=== PATIENT | male | born 1935 | race Caucasian/White ===

== ENCOUNTER 2017-09-07 02:10 | Inpatient (IN) | payer MEDICARE ==
[~2017-09-07] VITALS: Ht 185.4 cm; Wt 108.9 kg
[~2017-09-07 02:10] MED LIST: ACET-66 PO; ATOR-2 PO; DOXE25CA3 PO; FINA5TAB41 PO; GABA-529 PO; GALA8TAB4 PO; MEMA5TAB15 PO; METO50TA18 PO; OMEP20CA10 PO; SACU1TAB PO; TAMS-1 PO; TRAZ-147 PO; TYL3 PO; VIT1CAPS47 PO
[2017-09-07] MEDS ORDERED: ASPIRIN 81MG TAB.CHEW ONE (02:20)
[2017-09-07] MEDS ORDERED: METOPROLOL TARTRATE 1 MG/ML 5ML VIAL IV ONE (02:20)
[2017-09-07 02:49] LABS: CREATININE 1.2 mg/dL (0.5-1.5); POTASSIUM 4.8 mmol/L (3.5-5.1)
[2017-09-07 03:03] LABS: ALBUMIN 3.7 g/dL (3.5-5.0); BILIRUBIN,TOTAL 0.5 mg/dL (0.2-1.0); CREATINE KINASE MB 2.4 ng/mL (0.5-3.6); TOTAL PROTEIN, SERUM 7.4 g/dL (6.0-8.3)
[2017-09-07 03:52] LABS: BASOPHILS % (AUTO) 0.7 % (0.0-5.0); LYMPHOCYTES % (AUTO) 25.7 % (21.0-51.0); MEAN CORPUSCULAR HEMOGLOBIN 31.4 pg (27.0-33.0); MEAN CORPUSCULAR VOLUME 92.2 fL (79-99); MONOCYTES % (AUTO) 10.7 % (3.0-13.0); NEUTROPHILS % (AUTO) 60.9 % (40.0-77.0); PLATELET COUNT (AUTO) 135 K/uL (130-400); RED BLOOD CELL COUNT(AUTO) 4.12 MIL/uL (4.50-6.20); RED CELL DISTRIBUTION WIDTH 14.5 % (11.0-15.5); WHITE BLOOD COUNT (AUTO) 3.9 K/uL (4.8-10.8)
[2017-09-07 04:02] LABS: INR 1.06 (0.85-1.15); PARTIAL THROMBOPLASTIN TIME 29.2 SEC (26.3-35.5); PROTHROMBIN TIME 11.1 SEC (9.6-11.6)
[2017-09-07] MEDS ORDERED: NITROGLYCERIN 1GM/1 INCH PACKET TD ONE (07:47)
[2017-09-07 08:20] VITALS: BP 133/91
[2017-09-07] MEDS ORDERED: POTASSIUM CHLORIDE 20 MEQ ERTAB PO PRN (09:15)
[2017-09-07] MEDS ORDERED: POTASSIUM CHLORIDE 10% ELIXIR 20 MEQ/15 ML UDCUP PO PRN (09:15)
[2017-09-07] MEDS ORDERED: MAG HYDROX/AL HYDROX/SIMETH ES 30 ML SUSP UDCUP PO PRN (09:15)
[2017-09-07] MEDS ORDERED: GUAIFENESIN SUGAR-FREE 100 MG/5 ML UDCUP PO PRN (09:15)
[2017-09-07] MEDS ORDERED: DEXTROSE 50%-WATER 50 ML DISP.SYRIN IV PRN (09:15)
[2017-09-07] MEDS ORDERED: ONDANSETRON HCL 4 MG/2 ML VIAL IVP PRN (09:15)
[2017-09-07] MEDS ORDERED: ACETAMINOPHEN 325 MG TAB PO PRN ×2 (09:15)
[2017-09-07] MEDS ORDERED: GLUCAGON 1MG KIT 1 MG ML IM PRN (09:15)
[2017-09-07] MEDS ORDERED: DiphenhydrAMINE HCL 50 MG/ML VIAL IVP PRN (09:15)
[2017-09-07] MEDS ORDERED: SODIUM CHLORIDE 0.9% 10 ML VIAL IVP SCH (09:15)
[2017-09-07] MEDS ORDERED: LIDOCAINE HCL-MPF 1% 2ML VIAL IJ PRN (09:15)
[2017-09-07] MEDS ORDERED: POTASSIUM CHLORIDE 20MEQ/100ML 100 ML IV PRN (09:15)
[2017-09-07] MEDS: NITROGLYCERIN 1GM/1 INCH PACKET TD SCH ×2 (09:15→16:03)
[2017-09-07] MEDS ORDERED: NITROGLYCERIN 0.4 MG SL TAB SL PRN (09:15)
[2017-09-07] MEDS ORDERED: ZOLPIDEM TARTRATE 5 MG TAB PO PRN (09:15)
[2017-09-07] MEDS ORDERED: CLONIDINE HCL 0.1 MG TABLET PO PRN (09:15)
[2017-09-07] MEDS ORDERED: LACTULOSE 20 GM/30 ML UDCUP PO PRN (09:15)
[2017-09-07] MEDS ORDERED: GUAIFENESIN-DM 200/20 MG 10 ML PO PRN (09:15)
[2017-09-07] MEDS ORDERED: DIPHENHYDRAMINE HCL 25 MG CAPSULE PO PRN (09:15)
[2017-09-07 09:40] LABS: CREATINE KINASE MB 5.5 ng/mL (0.5-3.6); TROPONIN I 0.69 ng/mL (0.00-0.06)
[2017-09-07] MEDS: ASPIRIN 325 MG TABLET PO SCH (09:55)
[2017-09-07] MEDS: METOPROLOL TARTRATE 50 MG TAB PO SCH ×2 (09:55→23:47)
[2017-09-07] MEDS: PANTOPRAZOLE SODIUM 40 MG TABLET.DR PO SCH (09:55)
[2017-09-07] MEDS: INSULIN R PO SSI SQ SCH ×3 (11:30→21:00)
[2017-09-07 11:34] VITALS: BP 123/69
[2017-09-07] MEDS ORDERED: CLOP75TA32 PO (13:21)
[2017-09-07] MEDS ORDERED: FURO20TA4 PO (13:21)
[2017-09-07 15:38] LABS: CREATINE KINASE MB 5.9 ng/mL (0.5-3.6)
[2017-09-07 15:41] LABS: TROPONIN I 1.44 ng/mL (0.00-0.06)
[2017-09-07 16:33] VITALS: BP 128/74
[2017-09-07 19:40] VITALS: BP 114/74
[2017-09-07] MEDS ORDERED: ATORVASTATIN CALCIUM 40 MG TABLET PO SCH (21:00)
[2017-09-07] MEDS ORDERED: FINASTERIDE 5 MG TABLET PO SCH (21:00)
[2017-09-07] MEDS ORDERED: TRAZODONE HCL 50 MG TAB PO SCH (21:00)
[2017-09-07] MEDS ORDERED: TAMSULOSIN HCL 0.4 MG CAP.ER.24H PO SCH (21:00)
[2017-09-07] MEDS ORDERED: DOXEPIN HCL 25 MG CAP PO SCH (21:00)
[2017-09-07] MEDS: MEMANTINE HCL 5 MG TABLET PO SCH (21:27)
[2017-09-07 23:48] VITALS: BP 118/65
[2017-09-08] MEDS: NITROGLYCERIN 1GM/1 INCH PACKET TD SCH ×2 (01:38→10:55)
[2017-09-08 03:36] VITALS: BP 111/75
[2017-09-08] MEDS: INSULIN R PO SSI SQ SCH ×3 (06:42→16:23)
[2017-09-08] MEDS ORDERED: REGADENOSON 0.4 MG/5 ML PF SYG IVP SCH (06:45)
[2017-09-08 07:27] VITALS: BP 138/81
[2017-09-08] MEDS ORDERED: FUROSEMIDE 20 MG TABLET PO SCH (09:00)
[2017-09-08] MEDS ORDERED: GALANTAMINE HBR 4 MG TABLET PO SCH (09:00)
[2017-09-08] MEDS ORDERED: **HM** ENTRESTO 24-26MG PO SCH (09:00)
[2017-09-08] MEDS ORDERED: NON-FORMULARY MEDICATION 1 EACH (Omeprazole 20 MG) PO SCH (09:00)
[2017-09-08] MEDS: **HM** PRESERVISION AREDS PO SCH ×2 (09:00→14:00)
[2017-09-08] MEDS ORDERED: CLOPIDOGREL BISULFATE 75 MG TAB PO SCH (09:00)
[2017-09-08] MEDS: METOPROLOL TARTRATE 50 MG TAB PO SCH (10:53)
[2017-09-08] MEDS: ACETAMINOPHEN EXTRA STRENGTH 500 MG TABLET PO SCH ×2 (10:53→14:04)
[2017-09-08] MEDS: PANTOPRAZOLE SODIUM 40 MG TABLET.DR PO SCH (10:53)
[2017-09-08] MEDS: ASPIRIN 325 MG TABLET PO SCH (10:54)
[2017-09-08] MEDS: MEMANTINE HCL 5 MG TABLET PO SCH (10:55)
[2017-09-08 10:57] VITALS: BP 129/77
[2017-09-08] MEDS ORDERED: CARV3.12 PO (16:17)
[2017-09-08 16:22] VITALS: BP 139/71
== END 2017-09-08 18:15 | disposition home or self-care (01) | DRG 303 ==
LOC: EDH 02:10 → EDHIP 06:25 → 2AH 08:08 → 2DH 20:17
PROVIDERS: ADMIT Family Medicine; ATTEND Family Medicine
DX: I25.10 Atherosclerotic heart disease of native coronary artery without angina pectoris (principal); G62.9 Polyneuropathy, unspecified; Z95.1 Presence of aortocoronary bypass graft; R07.9 Chest pain, unspecified; I99.8 Other disorder of circulatory system; E78.5 Hyperlipidemia, unspecified; H91.90 Unspecified hearing loss, unspecified ear; I10 Essential (primary) hypertension; I49.3 Ventricular premature depolarization; Z95.810 Presence of automatic (implantable) cardiac defibrillator
CPT/HCPCS: 36415; 71045; 78452; 80053; 82550; 82553; 82948; 83874; 83880; 84484; 85025; 85610; 85730; 93005; A9500; J2785; J3490

== ENCOUNTER 2017-10-22 14:16 | Inpatient (IN) | payer MEDICARE ==
[~2017-10-22] VITALS: Ht 185.4 cm; Wt 108.9 kg
[~2017-10-22 14:16] MED LIST changes: +CARV3.12 PO; +CLOP75TA32 PO; +FURO20TA4 PO; -METO50TA18 PO; -TRAZ-147 PO; +TRAZ-187 PO; -TYL3 PO
[2017-10-22 14:44] LABS: BASOPHILS % (AUTO) 0.6 % (0.0-5.0); EOSINOPHILS % (AUTO) 4.6 % (0.0-8.0); HEMATOCRIT 38.2 % (42-54); LYMPHOCYTES % (AUTO) 27.5 % (21.0-51.0); MEAN CORPUSCULAR HEMOGLOBIN 31.1 pg (27.0-33.0); MEAN CORPUSCULAR HGB CONC 34.1 g/dL (32.0-36.0); MEAN CORPUSCULAR VOLUME 91.1 fL (79-99); MONOCYTES % (AUTO) 11.7 % (3.0-13.0); NEUTROPHILS % (AUTO) 55.6 % (40.0-77.0); PLATELET COUNT (AUTO) 167 K/uL (130-400); RED BLOOD CELL COUNT(AUTO) 4.19 MIL/uL (4.50-6.20); RED CELL DISTRIBUTION WIDTH 14.3 % (11.0-15.5); WHITE BLOOD COUNT (AUTO) 4.3 K/uL (4.8-10.8)
[2017-10-22 15:00] LABS: INR 1.04 (0.85-1.15); PARTIAL THROMBOPLASTIN TIME 30.7 SEC (26.3-35.5); PROTHROMBIN TIME 10.9 SEC (9.6-11.6)
[2017-10-22 15:03] LABS: CREATININE 1.3 mg/dL (0.5-1.5)
[2017-10-22 15:10] LABS: B-TYPE NATRIURETIC PEPTIDE 686 pg/mL (0-100)
[2017-10-22 15:16] LABS: ALBUMIN 3.3 g/dL (3.5-5.0); BILIRUBIN,TOTAL 0.3 mg/dL (0.2-1.0); CREATINE KINASE MB 3.4 ng/mL (0.5-3.6); TOTAL PROTEIN, SERUM 6.8 g/dL (6.0-8.3)
[2017-10-22 17:54] VITALS: BP 120/73
[2017-10-22 19:44] VITALS: BP 93/43
[2017-10-22] MEDS ORDERED: CLONIDINE HCL 0.1 MG TABLET PO PRN (21:15)
[2017-10-22] MEDS ORDERED: MAG HYDROX/AL HYDROX/SIMETH ES 30 ML SUSP UDCUP PO PRN (21:15)
[2017-10-22] MEDS ORDERED: GUAIFENESIN SUGAR-FREE 100 MG/5 ML UDCUP PO PRN (21:15)
[2017-10-22] MEDS ORDERED: LACTULOSE 20 GM/30 ML UDCUP PO PRN (21:15)
[2017-10-22] MEDS ORDERED: SODIUM CHLORIDE 0.9% 10 ML VIAL IVP PRN (21:15)
[2017-10-22] MEDS ORDERED: ACETAMINOPHEN 325 MG TAB PO PRN (21:15)
[2017-10-22] MEDS ORDERED: DiphenhydrAMINE HCL 50 MG/ML VIAL IVP PRN (21:15)
[2017-10-22] MEDS ORDERED: GUAIFENESIN-DM 200/20 MG 10 ML PO PRN (21:15)
[2017-10-22] MEDS ORDERED: NITROGLYCERIN 0.4 MG SL TAB SL PRN (21:15)
[2017-10-22] MEDS ORDERED: ONDANSETRON HCL 4 MG/2 ML VIAL IVP PRN (21:15)
[2017-10-22] MEDS ORDERED: ZOLPIDEM TARTRATE 5 MG TAB PO PRN (21:15)
[2017-10-22] MEDS ORDERED: DIPHENHYDRAMINE HCL 25 MG CAPSULE PO PRN (21:15)
[2017-10-22] MEDS: ACETAMINOPHEN 325 MG TAB PO PRN (21:54)
[2017-10-22 23:28] VITALS: BP 120/67
[2017-10-23 03:56] VITALS: BP 111/56
[2017-10-23 04:04] LABS: HEMATOCRIT 37.1 % (42-54); MEAN CORPUSCULAR HEMOGLOBIN 30.5 pg (27.0-33.0); MEAN CORPUSCULAR HGB CONC 33.5 g/dL (32.0-36.0); MEAN CORPUSCULAR VOLUME 91.1 fL (79-99); PLATELET COUNT (AUTO) 138 K/uL (130-400); RED BLOOD CELL COUNT(AUTO) 4.07 MIL/uL (4.50-6.20); RED CELL DISTRIBUTION WIDTH 14.2 % (11.0-15.5)
[2017-10-23 04:08] LABS: POTASSIUM 4.1 mmol/L (3.5-5.1)
[2017-10-23 05:07] LABS: BAND NEUTROPHILS % (MANUAL) 4 % (0-2); EOSINOPHILS % (MANUAL) 2 % (1-6); LYMPHOCYTES % (MANUAL) 14 % (22-44); MAN.DIFF COMMENT-IMPRESSION MANUAL DIFFERENTIAL; MONOCYTES % (MANUAL) 4 % (2-9); PLATELET MORPHOLOGY COMMENT SLIGHTLY DECREASED; SEGMENTED NEUTROPHILS % 76 % (40-70)
[2017-10-23 07:00] VITALS: BP 134/81
[2017-10-23] MEDS: PANTOPRAZOLE SODIUM 40 MG TABLET.DR PO SCH (08:29)
[2017-10-23] MEDS ORDERED: FUROSEMIDE 10 MG/ML 2ML VIAL IV SCH (09:00)
[2017-10-23] MEDS ORDERED: ASPIRIN 81MG TAB.CHEW PO SCH (09:00)
[2017-10-23] MEDS ORDERED: POTASSIUM CHLORIDE 20 MEQ ERTAB PO SCH (09:00)
[2017-10-23 10:00] LABS: CREATINE KINASE MB 1.7 ng/mL (0.5-3.6); TROPONIN I 0.06 ng/mL (0.00-0.06)
[2017-10-23 11:00] VITALS: BP 112/82
[2017-10-23] MEDS: ACETAMINOPHEN 325 MG TAB PO PRN (11:52)
[2017-10-23 16:00] VITALS: BP 117/82
[2017-10-23] MEDS ORDERED: AMIODARONE HCL 150 MG in DEXTROSE 5%-WATER 100 ML IV SCH (19:15)
[2017-10-23] MEDS ORDERED: AMIODARONE HCL 900 MG in DEXTROSE 5%-WATER 500 ML IV SCH (19:30)
[2017-10-23 19:34] VITALS: BP 131/83
[2017-10-23] MEDS: ACETAMINOPHEN EXTRA STRENGTH 500 MG TABLET PO SCH (20:39)
[2017-10-23] MEDS: GALANTAMINE HBR 4 MG TABLET PO SCH (20:40)
[2017-10-23] MEDS: MEMANTINE HCL 5 MG TABLET PO SCH (20:40)
[2017-10-23] MEDS ORDERED: ATORVASTATIN CALCIUM 40 MG TABLET PO SCH (21:00)
[2017-10-23] MEDS ORDERED: GABAPENTIN 100 MG CAPSULE PO SCH (21:00)
[2017-10-23] MEDS ORDERED: TRAZODONE HCL 100 MG TABLET PO SCH (21:00)
[2017-10-23] MEDS ORDERED: FINASTERIDE 5 MG TABLET PO SCH (21:00)
[2017-10-23] MEDS ORDERED: TAMSULOSIN HCL 0.4 MG CAP.ER.24H PO SCH (21:00)
[2017-10-23] MEDS ORDERED: DOXEPIN HCL 25 MG CAP PO SCH (21:00)
[2017-10-24] VITALS: BP 121/68
[2017-10-24 03:36] LABS: CREATININE 1.2 mg/dL (0.5-1.5); POTASSIUM 4.3 mmol/L (3.5-5.1)
[2017-10-24 04:00] VITALS: BP 124/78
[2017-10-24 07:00] VITALS: BP 130/75
[2017-10-24] MEDS ORDERED: CLOPIDOGREL BISULFATE 75 MG TAB PO SCH (09:00)
[2017-10-24] MEDS ORDERED: FUROSEMIDE 20 MG TABLET PO SCH (09:00)
[2017-10-24] MEDS: ACETAMINOPHEN EXTRA STRENGTH 500 MG TABLET PO SCH ×2 (09:27→14:40)
[2017-10-24] MEDS: PANTOPRAZOLE SODIUM 40 MG TABLET.DR PO SCH (09:27)
[2017-10-24] MEDS: GALANTAMINE HBR 4 MG TABLET PO SCH (09:27)
[2017-10-24] MEDS: MEMANTINE HCL 5 MG TABLET PO SCH (09:28)
[2017-10-24 11:00] VITALS: BP 134/68
[2017-10-24 16:00] VITALS: BP 120/76
[2017-10-24] MEDS ORDERED: AMIO400T4 PO (18:04)
[2017-10-24] MEDS ORDERED: AMIODARONE HCL 200 MG TABLET PO SCH (18:15)
[2017-10-24] MEDS ORDERED: GABAPENTIN 100 MG CAPSULE PO SCH (21:00)
== END 2017-10-24 18:51 | disposition home or self-care (01) | DRG 309 ==
LOC: EDH 14:16 → UNDOADMIN 16:40 → 2AH 16:40 → EDHIP 16:40
PROVIDERS: ADMIT Family Medicine; ATTEND Family Medicine
PROC: 4B02XTZ Measurement of Cardiac Defibrillator, External Approach (ICD-10-PCS; principal; 2017-10-22)
DX: I47.2 Ventricular tachycardia (principal); R57.9 Shock, unspecified; I49.01 Ventricular fibrillation; I50.42 Chronic combined systolic (congestive) and diastolic (congestive) heart failure; I11.0 Hypertensive heart disease with heart failure; I25.5 Ischemic cardiomyopathy; I25.10 Atherosclerotic heart disease of native coronary artery without angina pectoris; E78.5 Hyperlipidemia, unspecified
CPT/HCPCS: 36415; 71045; 80048; 80053; 82550; 82553; 83735; 83874; 83880; 84484; 85025; 85610; 85730; 93005; 93306; J0282; J1940; J7060

== ENCOUNTER → 2018-08-26 | Outpatient (CLI) | payer MEDICARE ==
[~2018-08-26] MED LIST changes: +AMIO400T4 PO; -CARV3.12 PO; -OMEP20CA10 PO
== END | disposition home or self-care (01) ==
LOC: RAH 09:04
PROVIDERS: ATTEND Internal Medicine Cardiovascular Disease
DX: I51.7 Cardiomegaly (principal); M85.88 Other specified disorders of bone density and structure, other site; M47.814 Spondylosis without myelopathy or radiculopathy, thoracic region
CPT/HCPCS: 71046

== ENCOUNTER → 2018-09-16 | Outpatient (CLI) | payer MEDICARE | END | disposition home or self-care (01) | LOC: SHCH 08:12 | PROVIDERS: ATTEND Internal Medicine Cardiovascular Disease | DX: I50.42 Chronic combined systolic (congestive) and diastolic (congestive) heart failure (principal); I35.0 Nonrheumatic aortic (valve) stenosis | CPT/HCPCS: 93306 ==